=== PATIENT | male | born 1980 | race Caucasian/White ===

== ENCOUNTER 2018-10-22 11:45 | Inpatient (IN) | payer MEDICAID, SELFPAY ==
[2018-10-22 11:46] VITALS: BP 135/84; PULSE 91; RESP 18; TEMP 36.6; O2SAT 97; BMI 26.6
--- NOTE | 2018-10-22 12:14 | ED.VISSUMM ---
- ER Visit Summary Date of Service: 10/22/18 Chief Complaint: [Request for alcohol detox] History of Present Illness: The patient is a 38 M [presents to the emergency department complaining of wanting to detox from alcohol. Patient states that his last drink was at 11 PM. Patient complains of a headache and nausea. Patient complains of feeling shaky. Patient is felt cold and hot. Patient has history of seizure disorder and normally takes Dilantin. Patient believes his last seizure was about 4 months ago. Patient states oftentimes his seizures are while he is sleeping and he wakes up with a tongue that has been bitten. Patient will last detox in 2018.] Physical Examination: [HEENT-PERRLA, EOMI. Cranial nerves II through XII grossly intact. TMs clear. Mucous membranes moist. No adenopathy. Cardiovascular-regular rate and rhythm without murmur or ectopy Lungs-clear to auscultation, chest wall stable without crepitus or subcu emphysema Abdomen-normoactive bowel sounds, soft, nontender, no rebound or rigidity, no peritoneal signs. Neuro laje-pfgxpq-iroo and heel donald testing within normal limits, negative Romberg, negative pronator drift. Patient does have fine tremor noted. Extremities-intact ?4, normal range of motion, normal pulses, atraumatic] Test Results: [Chemistries, CBC, and Dilantin level ordered and pending.] Emergency Department Course and Treatment: [She was given normal saline 1 L bolus as well as Zofran and Librium.] Treatment Plan: [Admit for treatment of alcohol withdrawal and detox. Patient was being seen by nurse from [facility] when I entered the room.] Disposition: [Admit] Impression: [Alcohol withdrawal Request for alcohol detox] This note was generated with [employer] dictation software. It may contain incorrect words, spelling, and punctuation that were not noted in review of the chart prior to signing
--- NOTE | 2018-10-22 12:17 | ED.DCSUM_ITS ---
- ER Visit Summary Date of Service: 10/22/18 Chief Complaint: [Request for alcohol detox] History of Present Illness: The patient is a 38 M [presents to the emergency department complaining of wanting to detox from alcohol. Patient states that his last drink was at 11 PM. Patient complains of a headache and nausea. Patient complains of feeling shaky. Patient is felt cold and hot. Patient has history of seizure disorder and normally takes Dilantin. Patient believes his last seizure was about 4 months ago. Patient states oftentimes his seizures are while he is sleeping and he wakes up with a tongue that has been bitten. Patient will last detox in 2018.] Physical Examination: [HEENT-PERRLA, EOMI. Cranial nerves II through XII grossly intact. TMs clear. Mucous membranes moist. No adenopathy. Cardiovascular-regular rate and rhythm without murmur or ectopy Lungs-clear to auscultation, chest wall stable without crepitus or subcu emphysema Abdomen-normoactive bowel sounds, soft, nontender, no rebound or rigidity, no peritoneal signs. Neuro cmnz-wzlvgk-nynm and heel donald testing within normal limits, negative Romberg, negative pronator drift. Patient does have fine tremor noted. Extremities-intact ?4, normal range of motion, normal pulses, atraumatic] Test Results: [Chemistries, CBC, and Dilantin level ordered and pending.] Emergency Department Course and Treatment: [She was given normal saline 1 L bolus as well as Zofran and Librium.] Treatment Plan: [Admit for treatment of alcohol withdrawal and detox. Patient was being seen by nurse from [facility] when I entered the room.] Disposition: [Admit] Impression: [Alcohol withdrawal Request for alcohol detox] This note was generated with [employer] dictation software. It may contain incorrect words, spelling, and punctuation that were not noted in review of the chart prior to signing
[2018-10-22] MEDS: Ondansetron 4 MG/2 ML Vial IV (12:28)
[2018-10-22] MEDS: chlordiazePOXIDE 25 MG Capsule PO (12:29)
[2018-10-22] MEDS: 0.9% Normal Saline 1,000 ML 1000 ML IV (12:29)
[2018-10-22 12:34] LABS: Absolute Lymphocyte Count 1.34 X10^3/ul (0.83-4.51); Absolute Neutrophil Count 3.8 X10^3/uL (2.0-7.7); Basophil# 0.02 X10^3/uL; Basophil% 0.3 % (0-1); Eosinophil# 0.06 X10^3/uL; Hematocrit 40.1 % (40-54); Hemoglobin 13.6 g/dl (13.0-16.5); Lymphocyte # 1.34 X10^3/ul (4.0); Lymphocyte % 22.5 % (19-41); Mean Corp Hgb Conc 33.9 g/gl (32-36); Mean Corpuscular Hgb 31.8 pg (27.0-32.0); Mean Corpuscular Volume 93.7 fL (80-94); Mean Platelet Vol. 8.3 fl (6.2-12.0); Monocyte# 0.71 X10^3/uL; Monocyte% 11.9 % (0-10); Neutrophil # 3.82 X10^3/uL (2.7-7.7); Neutrophil % 64.1 % (47-70); Platelet Count 207 K/mm3 (150-450); RBC Distribution Width CV 13.7 % (11.6-14.6); RBC Distribution Width SD 46.9 fl (35.1-43.9); Red Blood Count 4.28 M/mm3 (4.6-6.2)
[2018-10-22 12:41] LABS: POSITIVE COUNT NO; POSITIVE DIFFERENTIAL NO; POSITIVE MORPHOLOGY NO
[2018-10-22 12:47] LABS: ALB/GLOB Ratio 1.1 RATIO (0.9-2.4); AST(SGOT) 22 U/L (15-37); Alanine Aminotransfer ALT/SGPT 23 U/L (16-61); Albumin, Serum 3.9 g/dL (3.2-5.0); Alkaline Phosphatase 72 U/L (45-117); Anion Gap 7 (5-15); BUN 14 mg/dL (7-18); BUN/Creat Ratio 18.5 RATIO (10-20); Calcium,Total 8.9 mg/dL (8.5-10.1); Chloride 104 mmol/L (98-107); Creatinine, Serum 0.76 mg/dL (0.70-1.30); EST Glomerular Filtration Rate 123 mL/min (>60); Est Glom Filt Rate - Afr Amer 149 mL/min (>60); Globulin 3.6 g/dL (2.2-4.2); Glucose 84 mg/dL (74-106); Potassium 4.1 mmol/L (3.5-5.1); Protein, Total 7.5 g/dL (6.4-8.2); Sodium Level 140 mmol/L (136-145)
[2018-10-22] MEDS: Ibuprofen 400 MG Tablet 800 MG PO (12:51)
[2018-10-22 13:28] LABS: Alcohol, Blood (Medical)-Serum < 3.0 mg/dL
[2018-10-22 14:00] VITALS: BP 141/74; PULSE 84; RESP 16; O2SAT 99
[2018-10-22 14:42] VITALS: BMI 24.8
[2018-10-22 14:45] VITALS: BMI 24.8
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
[2018-10-22 14:54] VITALS: BP 113/78; PULSE 77; RESP 13; TEMP 36.5; O2SAT 96
[2018-10-22] MEDS: LORazepam 1 MG Tablet 2 MG PO (15:52)
[2018-10-22] MEDS: Methocarbamol 750 MG Tablet PO (15:53)
[2018-10-22] MEDS: Ibuprofen 600 MG Tablet PO (15:53)
[2018-10-22] MEDS: chlordiazePOXIDE 25 MG Capsule 50 MG PO ×2 (15:53→21:41)
--- NOTE | 2018-10-22 16:27 | CHAPLAIN ---
Type of Pastoral Visit _x__ Initial Visit ___ Follow-up Visit ___ On-call Visit ___ General Patient Visit ___ Spiritual Assessment ___ Family Conference ___ Bereavement ___ Rapid Response ___ Code Blue ___ Other (describe below) Pastoral Care Referral From _x__ Patient ___ Family ___ Nurse ___ Physician ___ Customer Care Specialist ___ Assistant General Manager ___ Other (describe below) Sacrament/Intervention _x__ Active listening ___ Anointing ___ Religion ___ Bereavement ___ Communion ___ Berenice exploration ___ ___ Life review _x__ Prayer ___ Reconciliation ___ Sacrament of Sick _x__ Supportive presence ___ Wedding ___ Other (describe below) Pastoral Comments
--- NOTE | 2018-10-22 16:40 | NEWVISION ---
Patient has pre-arranged plan to go to [facility] crisis unit immediately upon discharge for AOD/mental health/inpatient program. Agency to provide D/C transportation.
[2018-10-22] MEDS: Phenytoin Na 100 MG Capsule 300 MG PO (17:47)
[2018-10-22] MEDS: Thiamine Hydrochloride 100 MG Tablet PO (17:47)
[2018-10-22] MEDS: Folic Acid 1 MG Tablet PO (17:47)
[2018-10-22 21:00] VITALS: BP 119/79; PULSE 84; RESP 16; TEMP 37.1; O2SAT 95
[2018-10-22 22:00] VITALS: BP 119/79; PULSE 84; RESP 16; TEMP 37.1
[2018-10-23 01:30] VITALS: BP 126/74; BP 176/74; PULSE 70; RESP 16; TEMP 37.1; O2SAT 95
--- NOTE | 2018-10-23 02:00 | NURSING ---
came out to the nurses station stated that he is starting to have tremors, visible tremors noted. prn ativan given.
[2018-10-23] MEDS: LORazepam 1 MG Tablet 2 MG PO ×6 (02:08→16:56)
[2018-10-23] MEDS: chlordiazePOXIDE 25 MG Capsule 50 MG PO ×2 (04:26→10:48)
[2018-10-23 06:12] VITALS: BP 111/83; PULSE 98; RESP 18; TEMP 36.7
[2018-10-23] MEDS: Methylphenidate HCl 5 MG Tablet 10 MG PO ×2 (06:21→13:51)
[2018-10-23] MEDS: Methocarbamol 750 MG Tablet PO ×2 (06:39→12:34)
[2018-10-23] MEDS: Ibuprofen 600 MG Tablet PO ×2 (06:39→16:56)
[2018-10-23] MEDS: Multivitamins,Therapeutic Tablet 1 TABLET PO (08:32)
[2018-10-23] MEDS: Thiamine Hydrochloride 100 MG Tablet PO ×2 (08:32→16:51)
[2018-10-23] MEDS: Phenytoin Na 100 MG Capsule 300 MG PO ×2 (08:32→16:50)
[2018-10-23] MEDS: Folic Acid 1 MG Tablet PO (08:32)
[2018-10-23] MEDS: Acetaminophen 500 MG Tablet PO ×2 (08:42→12:33)
[2018-10-23 10:39] VITALS: BP 141/75; PULSE 81; RESP 16; TEMP 36.8
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
[2018-10-23] MEDS: Nicotine Polacrilex 2 MG GUM PO ×2 (13:52→16:51)
[2018-10-23 16:47] VITALS: BP 121/82; PULSE 85; RESP 16; TEMP 36.7
--- NOTE | 2018-10-23 17:06 | PCA ---
pt is up ad da in hallway, attempted to go down the staircase by the back elevators and this yard driver responded to the alarm. asked pt if he is wanting to leave he denies that he is trying to leave. pt continued to walk in halls noah mercado.
--- NOTE | 2018-10-23 17:13 | NURSING ---
pt had left the floor and then followed dietary on the elevator and when to the 1 st floor and the went down the steps to ground floor and was trying to get outside was met by this rn and angy and it security manager- after long conversation with angy pt was escorted back to 3 rd floor - put in orders for pt to be d/c against ama
--- NOTE | 2018-10-23 17:28 | CHAPLAIN ---
Type of Pastoral Visit ___ Initial Visit _x__ Follow-up Visit ___ On-call Visit ___ General Patient Visit ___ Spiritual Assessment ___ Family Conference ___ Bereavement ___ Rapid Response ___ Code Blue ___ Other (describe below) Pastoral Care Referral From _x__ Patient ___ Family _x__ Nurse ___ Physician ___ Power Plant Electrician ___ Photo Lab Manager ___ Other (describe below) Sacrament/Intervention _x__ Active listening ___ Anointing ___ Congregation ___ Bereavement ___ Communion _x__ Berenice exploration ___ _x__ Life review _x__ Prayer ___ Reconciliation ___ Sacrament of Sick _x__ Supportive presence ___ Wedding _x - walking the halls with patient - Other (describe below) Pastoral Comments received call from RN that patient was requesting to talk with this community health counselor; went to room and pt was about to enter shower; returned at 3 p.m. and pt was in room ordering meal for supper; pt expresses his wish to go outside, walk, and his frustration with the rules; sat in room with pt at length to occupy him and get him to talk and then followed him into hallway and walked hallways until he returned on his own to his room; pt states that he wishes to go outside and if he cannot then he will leave AMA; pt requests [employer] to notify RN that he wants to leave the hospital; help desk manager, Scientific Photographer, and RN speak to pt at this point and community health counselor leaves the area
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
--- NOTE | 2018-10-23 17:35 | NURSING ---
Patient was noted to have left the nursing unit on an elevator following a member of the dietary staff. Gay RN left floor to find patient and ensure that he was safe and to determine his rationale for leaving the unit despite having been told multiple times that he is unable to leave the floor due to hospital staff inability to ensure his safety once he has left the nursing unit. Patient had just in the 30 minutes previous to this occurrence attempted to open one of the emergency exit stairways causing the alarm to sound. At that point in time it was explained to him that he was not able to leave the nursing unit due to safety and monitoring issues. He continued to ambulate in the hallway where he was asked multiple times whether anything was needed. He denied needs other than stating that he wanted some fresh air. Once patient had gotten down to the ground floor a lengthy discussion had occurred between the patient, this RN, his primary nurse Gay, and security regarding his status. Patient was again informed of the reasons why he is unable to leave the nursing unit. Again this nurse described that because of his diagnosis there are safety issues to allowing him to be off of the nursing unit independently and that we would not be able to accommodate an individual escort off of the floor at whatever point that he would like. Informed the patient that this was the second time that he overtly acted in contrast to the defined care plan despite the safety risks being described to him multiple times. Also stated that he did not even attempt to notify staff as he left the nursing unit. Situation deescalated and patient escorted back up to nursing unit. Charge nurse Elly in contact with healthcare provider regarding circumstances
--- NOTE | 2018-10-23 17:56 | NURSING ---
Patient informed of discharge order placed by Luke Finney in response to his unwillingness to cooperate with staff and participate effectively in his plan of care. Patient is calm at this point and states that he understands that he is being discharged. He does not object to being discharged although he still argues that he should be permitted to leave the nursing unit to get fresh air and return when he decides. Again attempted to explain the rationale on why we are not able to allow patients to actively leave the nursing unit and return when they like due to concerns for their safety. Offered to provide patient with a taxi ride if he is unable to obtain transportation. He stated that he would not be able to obtain transportation so a taxi was set up by director food safety Sonja.
== END 2018-10-23 18:00 | disposition left against medical advice (07) | DRG 770 ==
LOC: ED 13:28 → MS3 14:32
PROVIDERS: Admitting Provider Internal Medicine; Emergency Provider Emergency Medicine; Family Provider Family Medicine; PCP Family Medicine; Visit Provider Student in an Organized Health Care Education/Training Program
DX: F10.239 Alcohol dependence with withdrawal, unspecified (principal); Y90.9 Presence of alcohol in blood, level not specified; Z53.21 Procedure and treatment not carried out due to patient leaving prior to being seen by health care provider; J45.909 Unspecified asthma, uncomplicated; F17.210 Nicotine dependence, cigarettes, uncomplicated; R56.1 Post traumatic seizures; Z87.820 Personal history of traumatic brain injury; Z79.899 Other long term (current) drug therapy
CPT/HCPCS: 80053; 80185; 80320; 85025; 99284; J7030; G0480; J2405